=== PATIENT | female | born 1965 | race Caucasian/White ===

== ENCOUNTER 2021-07-05 08:03 | Day surgery (SDC) | payer BC ==
[~2021-07-05 08:03] MED LIST: Lactated Ringers 1,000 ML IV SCH
[2021-07-05] MEDS ORDERED: Propofol 200 MG/20 ML SDV ONE (08:36)
[2021-07-05] MEDS ORDERED: fentaNYL 100 MCG/2 ML SDV ONE (08:37)
--- NOTE | 2021-07-05 14:17 | OR ---
PREOPERATIVE DIAGNOSIS: Screening colonoscopy. POSTOPERATIVE DIAGNOSIS: Inadequate preparation. PROCEDURE PERFORMED: Aborted colonoscopy. ANESTHESIA: MAC anesthesia. COMPLICATIONS: None. BLOOD LOSS: None. FINDINGS: There was a large amount of liquid stool and fibrous material throughout the colon precluding evaluation of greater than 50% of the mucosa. Due to the very poor prep, the colonoscopy was discontinued. Start time 1029, stop time 1038. BOWEL PREP: [place] class 1. INDICATIONS: Fanta Floyd is a 55-year-old female who is here for her first screening colonoscopy. She has had no bloody or dark black stools. No family history of colon cancer. DETAILS OF PROCEDURE: Informed consent was obtained. The patient was brought to the procedure room and placed in left lateral decubitus position. MAC anesthesia was induced by Anesthesia colleagues without incident. The colonoscope was introduced into the rectum. We then advanced it to the ascending colon. There was a large amount of liquid stool and fibrous material throughout the colon. It was clear that an evaluation of greater than 50% of the mucosa was not possible, so the colonoscopy was terminated, and the colonoscope was withdrawn. PATHOLOGY: None. Repeat colonoscopy within the next year with a GoLYTELY split prep. RKM: 07/05/2021 10:43:10 MODL: 07/05/2021 12:08:02 /[id number]
== END 2021-07-05 13:07 | disposition home or self-care (01) ==
LOC: VM.SDS 08:03
PROVIDERS: ATTEND Student in an Organized Health Care Education/Training Program
DX: Z12.11 Encounter for screening for malignant neoplasm of colon (principal); Z79.899 Other long term (current) drug therapy
CPT/HCPCS: 00812; J2704; J3010; J7120

== ENCOUNTER 2022-04-19 11:35 | Emergency (ER) | payer BC ==
[2022-04-19] MEDS ORDERED: Sodium Chloride 0.9% 10 ML Syringe FLUSH PRN (11:57)
[2022-04-19] MEDS ORDERED: Sodium Chloride 0.9% 1,000 ML IV SCH (12:00)
[2022-04-19] MEDS ORDERED: HYDROmorphone 0.5 MG/0.5 ML Syringe IVPUSH ONE (12:00)
[2022-04-19] MEDS ORDERED: Ondansetron 4 MG/2 ML SDV IVPUSH ONE (12:00)
[2022-04-19 12:40] LABS: ANION GAP 11.2 mmol/L (5-15); CHLORIDE,CL 105 mmol/L (98-107); ESTIMATED GFR 85 mL/min (>=60); SODIUM,NA 141 mmol/L (136-145)
[2022-04-19] MEDS ORDERED: Take Home: Acetaminophen/oxyCODONE 325-5 MG, 5 Tab Pack PO ONE (13:01)
[2022-04-19] MEDS ORDERED: Take Home: Cyclobenzaprine 10 MG Tab, 4 Tab Pack PO ONE (13:01)
== END 2022-04-19 13:26 | disposition home or self-care (01) ==
LOC: VM.ED 11:35
DX: M54.50 Low back pain, unspecified (principal)
CPT/HCPCS: 36415; 80053; 81003; 85025; 86140; 96361; 96374; 96375; 99283; A9270; J1170; J2405; J7030